=== PATIENT | female | born 1945 | race African-American/Black ===

== ENCOUNTER 2024-03-19 09:05 | Day surgery (SDC) | payer OTHER ==
[2024-03-11 16:45] VITALS: BMI 36.5
[2024-03-19 09:47] LABS: BASO % 0.6 % (0-2.0); EOS % 1.3 % (0-4.5); HEMATOCRIT 38.3 % (32.4-45.2); HEMOGLOBIN 12.7 GM/dL (10.7-15.3); MCH 28.8 pg (25.7-33.7); MCHC 33.3 g/dl (32.0-36.0); MEAN CELL VOLUME 86.5 fl (80-96); MEAN PLT VOLUME 7.7 fl (7.5-11.1); MONO % 7.3 % (3.8-10.2); NEUT % 60.8 % (42.8-82.8); PLATELET COUNT 903 10^3/uL (134-434); RBC 4.42 M/mm3 (3.60-5.2); RDW 14.6 % (11.6-15.6); WHITE BLOOD COUNT 5.2 K/mm3 (4.0-10.0)
[2024-03-19 09:53] LABS: INR 0.98 (0.83-1.09); PROTHROMBIN TIME (PATIENT) 11.3 SEC (9.7-13.0)
[2024-03-19] MEDS ORDERED: FENTANYL CITRATE/PF 50 MCG/ML VIAL ONE (10:11)
[2024-03-19] MEDS ORDERED: MIDAZOLAM HCL 2 MG/2 ML SINGLE DOSE VIAL ONE (10:11)
[2024-03-19] MEDS: FENTANYL CITRATE/PF 50 MCG/ML VIAL IVPUSH ONE ×3 (11:08→11:17)
[2024-03-19] MEDS: FENTANYL CITRATE/PF 50 MCG/ML VIAL IVPUSH SCH (11:19)
[2024-03-19 13:02] VITALS: RESP 20; TEMP 97.7
[2024-03-19 13:04] VITALS: BP 130/70; PULSE 70
== END 2024-03-19 13:00 | disposition home or self-care (01) ==
LOC: JRADIR 09:05
PROVIDERS: ATTEND Student in an Organized Health Care Education/Training Program
PROC: 07DR3ZX Extraction of Iliac Bone Marrow, Percutaneous Approach, Diagnostic (ICD-10-PCS; principal; 2024-03-19)
DX: D75.839 Thrombocytosis, unspecified (principal)
CPT/HCPCS: 20225; 36415; 77012-TC; 85025; 85610; 88300-TC